=== PATIENT | male | born 1985 | race Caucasian/White ===

== ENCOUNTER 2017-02-12 12:38 | Emergency (ER) | payer OTHER ==
[2017-02-12 12:44] VITALS: BP 128/85; TEMP 98.4; O2SAT 95
--- NOTE | 2017-02-12 14:26 | EDPHY ---
H & P Stated Complaint: R shoulder dislocated now back in HPI/ROS: Chief complaint: Right shoulder dislocation History of present illness: This is a 31-year-old male who presents to the emergency department for what he believes is a right shoulder dislocation. He believes he dislocated it while exercising but has now relocated it. He states he was doing a bench press when he felt a pop and noted a deformity in the right shoulder. He was unable to move it. He came here and while walking in the department he felt it pop back into place. He reports a mild soreness in the shoulder. He is moving it well. He denies abnormal coolness or paresthesias in the right arm. No other injuries reported. He has never dislocated his shoulder before. - Personal History Current Tetanus/Diphtheria Vaccine: Yes Current Tetanus Diphtheria and Acellular Pertussis (TDAP): Yes - Medical/Surgical History Hx Asthma: No Hx Chronic Respiratory Disease: No Hx Diabetes: No Hx Cardiac Disease: No Hx Renal Disease: No Hx Cirrhosis: No Hx Alcoholism: No Hx HIV/AIDS: No Hx Splenectomy or Spleen Trauma: No - Social History Smoking Status: Former smoker - Physical Exam Exam: General: Alert, nontoxic Skin: No abnormal lesions to the right shoulder. Musculoskeletal: No tenderness to the right shoulder. He is ranging it with mild discomfort. The clavicle and AC joint are nontender. The rest of the right upper extremity is unremarkable. Chest wall is nontender. Respiratory: Lungs clear to auscultation bilaterally Vascular: Radial pulses 2+. Capillary refill brisk in the right hand. Neurologic: Sensation intact throughout the right upper extremity. Constitutional: Initial Vital Signs Temperature (C) 36.9 C 02/12/17 12:41 Heart Rate 81 02/12/17 12:41 Respiratory Rate 16 02/12/17 12:41 Blood Pressure 128/85 H 02/12/17 12:41 O2 Sat (%) 95 02/12/17 12:41 O2 Delivery Mode Room Air Allergies/Adverse Reactions: Penicillins Allergy (Verified 02/12/17 12:43) Medical Decision Making - Diagnostics Imaging Results: Imaging Impressions Shoulder X-Ray 02/12/17 12:44 Impression: Normal alignment. No fracture or AC separation. Imaging: I viewed and interpreted images myself ED Course/Re-evaluation: Patient seen under the supervision of my secondary supervising physician Dr. Brayan Squires. Patient presents to the emergency department for a right shoulder injury. He believes he dislocated and relocated shoulder. On my evaluation the right upper extremity is neurovascularly intact. Right shoulder with soreness on ranging but no other findings. No other significant findings by history or physical exam. Patient is placed in a sling for comfort. Home care is discussed. He is referred to Orthopedics for recheck. Return precautions are given. Patient voiced understanding and agreement with plan. Differential Diagnosis: Included but not limited to contusion, sprain or strain, bony fracture, joint dislocation Departure - Departure Disposition: Home, Routine, Self-Care Clinical Impression: Shoulder dislocation Qualifiers: Encounter type: initial encounter Laterality: right Qualified Code(s): S43.004A - Unspecified dislocation of right shoulder joint, initial encounter Condition: Good Instructions: Shoulder Dislocation (ED) Additional Instructions: Follow-up with orthopedics for continued evaluation and care Rest the injury with sling as discussed Ice the injury, 20 minutes on, 3 times daily for the next 3 days Ibuprofen 600 mg 3 times a day for the next 2-3 days as needed for pain If symptoms worsen or new symptoms develop return to the emergency room for recheck Referrals: [facility] [Other] - As per Instructions Joo Chavez MD [Medical Doctor] - As per Instructions
[2017-02-12 15:02] VITALS: PULSE 80; RESP 14
== END 2017-02-12 15:01 | disposition home or self-care (01) ==
DX: S43.004A Unspecified dislocation of right shoulder joint, initial encounter (principal); Z87.891 Personal history of nicotine dependence; X58.XXXA Exposure to other specified factors, initial encounter